=== PATIENT | female | born 1990 | race Two or more races ===

== ENCOUNTER 2022-06-29 15:28 | Observation (INO) | payer MEDICAID ==
[~2022-06-29] VITALS: Ht 165.1 cm; Wt 57.2 kg
[2022-06-29 16:57] LABS: CLARITY URINE CLEAR (CLEAR); COLOR URINE YELLOW (YELLOW); KETONES URINE NEGATIVE (NEGATIVE); LEUKOCYTE ESTERASE URINE 3+ (NEGATIVE); NITRITE URINE NEGATIVE (NEGATIVE); OCCULT BLOOD URINE NEGATIVE (NEGATIVE); PH URINE 6.5 (4.5-8.0); PROTEIN URINE NEGATIVE (NEGATIVE); UROBILINOGEN URINE 0.2 E.U./dL (0.2-1.0)
[2022-06-29] MEDS ORDERED: PNV1TABL76 MT (18:04)
[2022-06-29] MEDS ORDERED: NITR-87 MT (18:43)
== END 2022-06-29 18:55 | disposition home or self-care (01) ==
LOC: 8 EST LDRP 15:28
PROVIDERS: ADMIT Obstetrics & Gynecology; ATTEND Obstetrics & Gynecology
DX: O26.893 Other specified pregnancy related conditions, third trimester (principal); R10.30 Lower abdominal pain, unspecified; O23.43 Unspecified infection of urinary tract in pregnancy, third trimester; Z3A.35 35 weeks gestation of pregnancy
CPT/HCPCS: 59025; 76805; 76818; 81003; G0378; 99281

== ENCOUNTER 2022-07-15 10:02 | Observation (INO) | payer MEDICAID ==
[~2022-07-15] VITALS: Ht 165 cm; Wt 63.0 kg
[~2022-07-15 10:02] MED LIST: NITR-87 MT; PNV1TABL76 MT
== END 2022-07-15 11:30 | disposition home or self-care (01) ==
LOC: 8 EST LDRP 10:02
PROVIDERS: ADMIT Obstetrics & Gynecology; ATTEND Obstetrics & Gynecology
DX: O62.9 Abnormality of forces of labor, unspecified (principal); Z3A.37 37 weeks gestation of pregnancy
CPT/HCPCS: 59025; G0378; 99281

== ENCOUNTER 2022-08-06 18:34 | Observation (INO) | payer MEDICAID ==
[~2022-08-06] VITALS: Ht 165 cm; Wt 63.0 kg
[2022-08-06] MEDS ORDERED: ASPI-1497 PO (20:49)
== END 2022-08-06 23:30 | disposition home or self-care (01) ==
LOC: 8 EST LDRP 18:34
PROVIDERS: ADMIT Specialist; ATTEND Specialist
DX: O26.893 Other specified pregnancy related conditions, third trimester (principal); R10.30 Lower abdominal pain, unspecified; O62.9 Abnormality of forces of labor, unspecified; Z3A.40 40 weeks gestation of pregnancy
CPT/HCPCS: 59025; 76805; 76818; G0378

== ENCOUNTER 2023-10-05 12:30 | Emergency (ER) | payer MEDICAID ==
[~2023-10-05] VITALS: Ht 165.1 cm; Wt 69.0 kg
[2023-10-05 12:40] VITALS: O2SAT 98
[2023-10-05 13:14] LABS: HEMATOCRIT. 37.2 % (36.0-48.0); HEMOGLOBIN. 12.2 g/dL (12.0-16.0); MEAN CORPUSCULAR HGB CONC 32.9 g/dL (31.0-37.0); MEAN CORPUSCULAR VOLUME 97.3 fL (81.0-99.0); MEAN PLATELET VOLUME 10.3 fl (7.4-10.4); PLATELET 199 x1000/uL (130-400); RED BLOOD CELL COUNT 3.82 mill/uL (4.2-5.4); WHITE BLOOD COUNT 13.2 x1000/uL (4.5-11.0)
[2023-10-05 13:29] LABS: HCG SCREEN POSITIVE
[2023-10-05] MEDS ORDERED: ACETAMINOPHEN 650MG/20.3ML UDC PO ONE (13:30)
[2023-10-05 13:33] LABS: CARBON DIOXIDE 22 mEq/L (21-32); CHLORIDE 105 mEq/L (98-107); POTASSIUM 3.3 mEq/L (3.5-5.1); SODIUM 134 mEq/L (136-145)
[2023-10-05 13:34] LABS: CALCIUM 9.2 mg/dL (8.7-10.4)
[2023-10-05 13:38] LABS: CREATININE 0.4 mg/dL (0.6-1.0); GLUCOSE 76 mg/dL (70-105)
[2023-10-05 13:38] LABS: CLARITY URINE CLOUDY (CLEAR); COLOR URINE YELLOW (YELLOW); GLUCOSE URINE NEGATIVE (NEGATIVE); KETONES URINE NEGATIVE (NEGATIVE); LEUKOCYTE ESTERASE URINE TRACE (NEGATIVE); NITRITE URINE NEGATIVE (NEGATIVE); OCCULT BLOOD URINE NEGATIVE (NEGATIVE); PROTEIN URINE NEGATIVE (NEGATIVE); SPECIFIC GRAVITY URINE 1.023 (1.005-1.030); UROBILINOGEN URINE 0.2 E.U./dL (0.2-1.0)
[2023-10-05 13:39] LABS: UREA NITROGEN BLOOD 6 mg/dL (9-23)
[2023-10-05 13:40] LABS: DIFFERENTIAL COMMENT 1
[2023-10-05] MEDS: SODIUM CHLORIDE 0.9% 1,000 ML IV ONE (14:45)
[2023-10-05 15:12] LABS: SQUAMOUS EPITHELIAL CELL URINE 3+ /lpf (RARE/1+)
[2023-10-05 15:14] LABS: BACTERIA URINE 4+; RBC URINE 0-2 /hpf (0-2)
[2023-10-05 15:25] LABS: PLATELET ESTIMATE NORMAL
[2023-10-05] MEDS: ACETAMINOPHEN 650MG/20.3ML UDC PO NR (15:42)
[2023-10-05 16:35] LABS: ALANINE AMINOTRANSFERASE 10 IU/L (10-49); ALBUMIN 4.1 g/dL (3.2-4.8); ASPARTATE AMINOTRANSFERASE 18 IU/L (<34); BILIRUBIN DIRECT 0.1 mg/dL (<=3.0); BILIRUBIN TOTAL 0.7 mg/dL (0.1-1.0); PROTEIN TOTAL 6.8 g/dL (6.0-8.3)
[2023-10-05 16:54] LABS: B-HCG QUANTITATIVE 5996 mIU/mL (<3)
[2023-10-05 17:00] VITALS: TEMP 99.3
[2023-10-05] MEDS ORDERED: ACET-2708 MT (17:08)
[2023-10-05] MEDS ORDERED: CEPH500C2 MT (17:08)
[2023-10-05] MEDS: CEFTRIAXONE 1GM/50ML 50 ML IV ONE (17:15)
[2023-10-05 18:21] VITALS: BP 106/56; PULSE 83; RESP 18
== END 2023-10-05 19:00 | disposition home or self-care (01) ==
LOC: ER 12:30
DX: O98.512 Other viral diseases complicating pregnancy, second trimester (principal); O23.42 Unspecified infection of urinary tract in pregnancy, second trimester; U07.1 COVID-19; Z3A.24 24 weeks gestation of pregnancy; N39.0 Urinary tract infection, site not specified
CPT/HCPCS: 80076; 80048; 81003; 84703; 84702; 85025; 86850; 86900; 86901; 36415; 76815; 76817; 96361; 96365; 99285; 87426; J0696; J7030; Z7610 ×2

== ENCOUNTER 2023-12-18 19:56 | Emergency (ER) | payer MEDICAID ==
[~2023-12-18] VITALS: Ht 165.1 cm; Wt 65.9 kg
[~2023-12-18 19:56] MED LIST changes: +ACET-2708 MT; +CEPH500C2 MT; -NITR-87 MT; -PNV1TABL76 MT
[2023-12-18 20:15] VITALS: O2SAT 98
[2023-12-18] MEDS: ONDANSETRON HCL 4MG/2ML INJ IV STA (20:56)
[2023-12-18] MEDS: SODIUM CHLORIDE 0.9% 1,000 ML IV ONE (20:56)
[2023-12-18 21:04] LABS: BASOPHILS % 0.2 % (0.0-2.0); EOSINOPHILS % 0.8 % (0.0-5.0); LYMPHOCYTES % 10.3 % (20.0-50.0); MEAN CORPUSCULAR HEMOGLOBIN 32.1 pg (28.0-32.0); MEAN CORPUSCULAR HGB CONC 35.2 g/dL (31.0-37.0); MEAN CORPUSCULAR VOLUME 91.2 fL (81.0-99.0); MEAN PLATELET VOLUME 11.1 fl (7.4-10.4); MONOCYTES % 5.9 % (2.0-8.0); NEUTROPHILS % 82.8 % (40.0-76.0); PLATELET 233 x1000/uL (130-400); RED BLOOD CELL COUNT 3.73 mill/uL (4.2-5.4); RED CELL DISTRIBUTION WIDTH 13.4 % (11.6-14.6); WHITE BLOOD COUNT 12.4 x1000/uL (4.5-11.0)
[2023-12-18 21:07] LABS: CHLORIDE 107 mEq/L (98-107); POTASSIUM 3.8 mEq/L (3.5-5.1); SODIUM 134 mEq/L (136-145)
[2023-12-18 21:08] LABS: CARBON DIOXIDE 20 mEq/L (21-32)
[2023-12-18 21:09] LABS: CALCIUM 8.9 mg/dL (8.7-10.4)
[2023-12-18] MEDS: ACETAMINOPHEN 325MG TABLET PO ONE (21:12)
[2023-12-18 21:13] LABS: CREATININE 0.6 mg/dL (0.6-1.0); GLUCOSE 89 mg/dL (70-105)
[2023-12-18 21:14] LABS: UREA NITROGEN BLOOD 10 mg/dL (9-23)
[2023-12-18 21:15] LABS: ALANINE AMINOTRANSFERASE 12 IU/L (10-49); ASPARTATE AMINOTRANSFERASE 22 IU/L (<34)
[2023-12-18 21:16] VITALS: TEMP 36.55848
[2023-12-18 21:16] LABS: PROTEIN TOTAL 6.8 g/dL (6.0-8.3)
[2023-12-18 21:17] LABS: INR 0.9; PARTIAL THROMBOPLASTIN TIME 23.5 sec (23.4-31.0); PROTHROMBIN TIME 9.8 sec (9.6-11.0)
[2023-12-18 21:36] LABS: B-HCG QUANTITATIVE 9921 mIU/mL (<3)
[2023-12-18 21:39] LABS: CLARITY URINE CLEAR (CLEAR); COLOR URINE YELLOW (YELLOW); GLUCOSE URINE NEGATIVE (NEGATIVE); KETONES URINE NEGATIVE (NEGATIVE); LEUKOCYTE ESTERASE URINE NEGATIVE (NEGATIVE); NITRITE URINE NEGATIVE (NEGATIVE); OCCULT BLOOD URINE NEGATIVE (NEGATIVE); PH URINE 6.5 (4.5-8.0); PROTEIN URINE TRACE (NEGATIVE); SPECIFIC GRAVITY URINE 1.024 (1.005-1.030); UROBILINOGEN URINE 0.2 E.U./dL (0.2-1.0)
[2023-12-18 22:06] LABS: BACTERIA URINE 2+; RBC URINE 0-2 /hpf (0-2); SQUAMOUS EPITHELIAL CELL URINE 1+ /lpf (RARE/1+); WBC URINE 0-2 /hpf (0-2)
[2023-12-18 22:40] VITALS: BP 112/66; PULSE 74; RESP 16; O2SAT 100
== END 2023-12-18 22:40 | disposition left against medical advice (07) ==
LOC: ER 19:56
DX: O26.893 Other specified pregnancy related conditions, third trimester (principal); O99.891 Other specified diseases and conditions complicating pregnancy; Z3A.34 34 weeks gestation of pregnancy
CPT/HCPCS: 80053; 81003; 84702; 83690; 85025; 85610; 85730; 86850; 86900; 86901; 36415; 76805; 76817; 96361; 96374; 99285; J2405; J7030; Z7610 ×3